=== PATIENT | male | born 1960 | race African-American/Black ===

== ENCOUNTER 2019-06-23 00:36 | Emergency (ER) | payer SELFPAY ==
[~2019-06-23] VITALS: Ht 190.5 cm; Wt 112.0 kg
[2019-06-23] MEDS ORDERED: METHYLPREDNISOLONE SOD SUCC 125 MG/2 ML VIAL IV ONE (01:00)
[2019-06-23] MEDS ORDERED: FAMOTIDINE 20MG TABLET PO ONE (01:00)
[2019-06-23] MEDS ORDERED: DIPHENHYDRAMINE 50MG/ML VIAL IV ONE (01:00)
[2019-06-23 03:24] VITALS: BP 132/82
== END 2019-06-23 03:26 | disposition home or self-care (01) ==
LOC: ER 00:36
DX: T78.09XA Anaphylactic reaction due to other food products, initial encounter (principal); F12.10 Cannabis abuse, uncomplicated; Z88.6 Allergy status to analgesic agent
CPT/HCPCS: 96374; 96375; 99283; J1200; J2930; Z7610

== ENCOUNTER 2019-08-30 21:59 | Emergency (ER) | payer MEDICAID ==
[~2019-08-30] VITALS: Ht 190.5 cm; Wt 96.0 kg
[2019-08-30] MEDS ORDERED: DEXAMETHASONE 4MG/ML 1ML VIAL IV ONE (22:15)
[2019-08-30] MEDS ORDERED: FAMOTIDINE 20MG/2ML VIAL IV ONE (22:15)
[2019-08-30] MEDS ORDERED: DIPHENHYDRAMINE 50MG/ML VIAL IV ONE (22:15)
[2019-08-30] MEDS ORDERED: EPINEPHRINE 1:1000 1 MG/ML AMP IM ONE (22:15)
[2019-08-31 06:26] VITALS: BP 156/94
== END 2019-08-31 06:39 | disposition home or self-care (01) ==
LOC: ER 21:59
DX: R22.0 Localized swelling, mass and lump, head (principal); Z88.6 Allergy status to analgesic agent; T39.015A Adverse effect of aspirin, initial encounter; Y92.018 Other place in single-family (private) house as the place of occurrence of the external cause
CPT/HCPCS: 96372; 96374; 96375; 99283; J1100; J1200; J3490